=== PATIENT | female | born 1975 | race Caucasian/White ===

== ENCOUNTER 2019-07-20 19:15 | Emergency (ER) | payer OTHER ==
[2019-07-20 19:34] VITALS: BP 117/59; PULSE 87
[2019-07-20] MEDS ORDERED: Ondansetron 4 MG/2 ML SDV IVPUSH ONE (19:37)
[2019-07-20] MEDS ORDERED: Sodium Chloride 0.9% 1,000 ML IV STA (19:42)
[2019-07-20] MEDS ORDERED: Sodium Chloride 0.9% 10 ML Syringe FLUSH PRN (19:42)
[2019-07-20] MEDS ORDERED: HYDROmorphone 1 MG/ML Syringe IVPUSH ONE (19:44)
--- NOTE | 2019-07-20 19:49 | EDM.PDOC ---
ED HPI GENERAL MEDICAL PROBLEM - General Chief Complaint: Abdominal Pain Stated Complaint: GASTRIC BIPASS LAST THURSDAY VOMITTING Time Seen by Provider: 07/20/19 19:38 Source of Information: Reports: Patient History Limitations: Reports: No Limitations - History of Present Illness INITIAL COMMENTS - FREE TEXT/NARRATIVE: The patient presents with upper abdominal pain, nausea and vomiting. This started about 1pm today. She ate a protein shake and refried beans and about an hour after that she had the vomiting and pain. She cannot keep anything down including water. She had gastric bypass surgery by Dr Gallo last Thursday and she was doing good. She has no fever, chills, cough, chest pain, shortness of breath, dysuria, hematuria or diarrhea. Onset: Sudden Duration: Hour(s): Location: Reports: Abdomen Quality: Reports: Sharp Severity: Severe Improves with: Reports: None Worsens with: Reports: None Associated Symptoms: Reports: Nausea/Vomiting. Denies: Chest Pain, Cough, Fever /Chills, Headaches, Shortness of Breath - Related Data Allergies Allergy/AdvReac Type Severity Reaction Status Date / Time chlorhexidine Allergy Other Verified 07/20/19 19:34 chloraprep Allergy Rash Uncoded 08/28/15 08:01 Home Meds: Home Meds Escitalopram [Lexapro] 10 mg PO DAILY 07/20/19 [History] HYDROcodone/Acetaminophen [Acetaminophen/HYDROcodone 2.5-108/5] 5 ml PO [History] Ondansetron [Zofran] 4 mg PO Q6H 07/20/19 [History] buPROPion [Wellbutrin] 75 mg PO BEDTIME 07/20/19 [History] busPIRone [Buspar] 10 mg PO BID 07/20/19 [History] Past Medical History Other HEENT History: glasses, contacts Other Respiratory History: shortness of breath with exertion Other Gastrointestinal History: frequent emesis Other Genitourinary History: Kidney infections, unspecified 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 Other Oncologic History: parathyroid, removed and radiation treatment - Past Surgical History GI Surgical History: Reports: Bariatric Procedure Other Female Surgeries/Procedures: x3 Other Endocrine Surgeries/Procedures: parathyroidectomy Social & Family History - Tobacco Use Smoking Status *Q: Never Smoker - Recreational Drug Use Recreational Drug Use: No ED ROS GENERAL - Review of Systems Review Of Systems: See Below Constitutional: Reports: No Symptoms HEENT: Reports: No Symptoms Respiratory: Reports: No Symptoms Cardiovascular: Reports: No Symptoms Endocrine: Reports: No Symptoms GI/Abdominal: Reports: Abdominal Pain, Nausea, Vomiting. Denies: Diarrhea : Reports: No Symptoms Musculoskeletal: Reports: No Symptoms Skin: Reports: No Symptoms ED EXAM, GI/ABD - Physical Exam Exam: See Below Exam Limited By: No Limitations General Appearance: Alert, No Apparent Distress Ears: Normal External Exam Nose: Normal Inspection Head: Atraumatic, Normocephalic Neck: Normal Inspection Respiratory/Chest: No Respiratory Distress, Lungs Clear, Normal Breath Sounds Cardiovascular: Regular Rate, Rhythm, No Edema, No Murmur GI/Abdominal Exam: Soft, No Organomegaly, No Mass, Tender (Moderate tenderness to the upper abdomen) (Female) Exam: Normal External Exam, Normal Speculum Exam, Other (Cervix is closed) Back Exam: Normal Inspection Extremities: Normal Inspection Neurological: Alert, Oriented, No Motor/Sensory Deficits Course - Vital Signs Last Recorded V/S: Last Vital Signs Temp 98.7 F 07/20/19 19:32 Pulse 87 07/20/19 19:32 Resp 16 07/20/19 19:32 BP 117/59 L 07/20/19 19:32 Pulse Ox 96 07/20/19 19:32 - Orders/Labs/Meds Orders: Active Orders 24 hr Category Date Time Status Peripheral IV Care [RC] . DIRECTED Care 07/20/19 19:42 Active Abdomen Pelvis w Cont [CT] Stat Exams 07/20/19 19:42 Taken LACTIC ACID [CHEM] Stat Lab 07/20/19 22:21 Ordered Sodium Chloride 0.9% [Normal Saline] 1,000 ml Med 07/20/19 21:15 Active IV ASDIRECTED Sodium Chloride 0.9% [Saline Flush] Med 07/20/19 20:30 Active 10 ml FLUSH ASDIRECTED Sodium Chloride 0.9% [Saline Flush] Med 07/20/19 19:42 Active 10 ml FLUSH ASDIRECTED PRN ED Antiemetic Medication Reflex [OM.PC] Stat Oth 07/20/19 19:42 Ordered Peripheral IV Insertion Adult [OM.PC] Stat Oth 07/20/19 19:42 Ordered Medication Orders Sodium Chloride (Normal Saline) 1,000 mls @ 150 mls/hr IV ASDIRECTED ERIC Last Admin: 07/20/19 21:16 Dose: 150 mls/hr Sodium Chloride (Saline Flush) 10 ml FLUSH ASDIRECTED PRN PRN Reason: Keep Vein Open Last Admin: 07/20/19 20:03 Dose: 10 ml Sodium Chloride (Saline Flush) 10 ml FLUSH ASDIRECTED ERIC Labs: Laboratory Tests 07/20/19 07/20/19 07/20/19 Range/Units 19:49 19:49 19:49 WBC 9.71 (3.98-10.04) K/mm3 RBC 4.69 (3.98-5.22) M/mm3 Hgb 14.3 D (11.2-15.7) gm/dl Hct 42.0 (34.1-44.9) % MCV 89.6 (79.4-94.8) fl MCH 30.5 (25.6-32.2) pg MCHC 34.0 (32.2-35.5) g/dl RDW Std Deviation 41.6 (36.4-46.3) fL Plt Count 423 H D (182-369) K/mm3 MPV 10.6 (9.4-12.3) fl Neut % (Auto) 66.4 (34.0-71.1) % Lymph % (Auto) 22.5 (19.3-51.7) % Ashley % (Auto) 8.1 (4.7-12.5) % Eos % (Auto) 2.6 (0.7-5.8) Baso % (Auto) 0.2 (0.1-1.2) % Neut # (Auto) 6.45 H (1.56-6.13) K/mm3 Lymph # (Auto) 2.18 (1.18-3.74) K/mm3 Ashley # (Auto) 0.79 H (0.24-0.36) K/mm3 Eos # (Auto) 0.25 (0.04-0.36) K/mm3 Baso # (Auto) 0.02 (0.01-0.08) K/mm3 Sodium 139 (136-145) mEq/L Potassium 3.7 (3.5-5.1) mEq/L Chloride 103 (98-107) mEq/L Carbon Dioxide 22 (21-32) mEq/L Anion Gap 17.7 H (5-15) BUN 13 (7-18) mg/dL Creatinine 0.7 (0.55-1.02) mg/dL Est Cr Clr Drug Dosing 87.49 mL/min Estimated GFR (MDRD) > 60 (>60) mL/min BUN/Creatinine Ratio 18.6 H (14-18) Glucose 94 (74-106) mg/dL Calcium 9.6 (8.5-10.1) mg/dL Total Bilirubin 2.0 H (0.2-1.0) mg/dL AST 66 H (15-37) U/L ALT 110 H (14-59) U/L Alkaline Phosphatase 212 H (46-116) U/L Total Protein 7.6 (6.4-8.2) g/dl Albumin 3.7 (3.4-5.0) g/dl Globulin 3.9 gm/dL Albumin/Globulin Ratio 1.0 (1-2) Amylase 58 (25-115) U/L Lipase 533 H (73-393) U/L HCG, Qual Negative (NEGATIVE) Urine Color (Yellow) Urine Appearance (Clear) Urine pH (5.0-8.0) Ur Specific [place] (1.005-1.030) Urine Protein (Negative) Urine Glucose (UA) (Negative) Urine Ketones (Negative) Urine Occult Blood (Negative) Urine Nitrite (Negative) Urine Bilirubin (Negative) Urine Urobilinogen (0.2-1.0) Ur Leukocyte Esterase (Negative) Urine RBC (0-5) /hpf Urine WBC (0-5) /hpf Ur Squamous Epith Cells (0-5) /hpf Urine Bacteria (FEW) /hpf Urine Mucus (FEW) /hpf 07/20/19 Range/Units 21:04 WBC (3.98-10.04) K/mm3 RBC (3.98-5.22) M/mm3 Hgb (11.2-15.7) gm/dl Hct (34.1-44.9) % MCV (79.4-94.8) fl MCH (25.6-32.2) pg MCHC (32.2-35.5) g/dl RDW Std Deviation (36.4-46.3) fL Plt Count (182-369) K/mm3 MPV (9.4-12.3) fl Neut % (Auto) (34.0-71.1) % Lymph % (Auto) (19.3-51.7) % Ashley % (Auto) (4.7-12.5) % Eos % (Auto) (0.7-5.8) Baso % (Auto) (0.1-1.2) % Neut # (Auto) (1.56-6.13) K/mm3 Lymph # (Auto) (1.18-3.74) K/mm3 Ashley # (Auto) (0.24-0.36) K/mm3 Eos # (Auto) (0.04-0.36) K/mm3 Baso # (Auto) (0.01-0.08) K/mm3 Sodium (136-145) mEq/L Potassium (3.5-5.1) mEq/L Chloride (98-107) mEq/L Carbon Dioxide (21-32) mEq/L Anion Gap (5-15) BUN (7-18) mg/dL Creatinine (0.55-1.02) mg/dL Est Cr Clr Drug Dosing mL/min Estimated GFR (MDRD) (>60) mL/min BUN/Creatinine Ratio (14-18) Glucose (74-106) mg/dL Calcium (8.5-10.1) mg/dL Total Bilirubin (0.2-1.0) mg/dL AST (15-37) U/L ALT (14-59) U/L Alkaline Phosphatase (46-116) U/L Total Protein (6.4-8.2) g/dl Albumin (3.4-5.0) g/dl Globulin gm/dL Albumin/Globulin Ratio (1-2) Amylase (25-115) U/L Lipase (73-393) U/L HCG, Qual (NEGATIVE) Urine Color Melanie H (Yellow) Urine Appearance Clear (Clear) Urine pH 5.5 (5.0-8.0) Ur Specific [place] > or = 1.030 (1.005-1.030) Urine Protein 1+ H (Negative) Urine Glucose (UA) Negative (Negative) Urine Ketones 4+ H (Negative) Urine Occult Blood Negative (Negative) Urine Nitrite Negative (Negative) Urine Bilirubin 2+ H (Negative) Urine Urobilinogen 1.0 (0.2-1.0) Ur Leukocyte Esterase Negative (Negative) Urine RBC 0-5 (0-5) /hpf Urine WBC 0-5 (0-5) /hpf Ur Squamous Epith Cells 5-10 H (0-5) /hpf Urine Bacteria Moderate H (FEW) /hpf Urine Mucus Moderate H (FEW) /hpf Meds: Medications Generic Name Dose Route Start Last Admin Trade Name Freq PRN Reason Stop Dose Admin Sodium Chloride 1,000 mls @ 150 mls/hr 07/20/19 21:15 07/20/19 21:16 Normal Saline IV 150 mls/hr ASDIRECTED ERIC Administration Sodium Chloride 10 ml 07/20/19 19:42 07/20/19 20:03 Saline Flush FLUSH 10 ml ASDIRECTED PRN Administration Keep Vein Open Sodium Chloride 10 ml 07/20/19 20:30 Saline Flush FLUSH ASDIRECTED ERIC Discontinued Medications Generic Name Dose Route Start Last Admin Trade Name Freq PRN Reason Stop Dose Admin Diatrizoate Meglum/Diatrizoate Sod 60 ml 07/20/19 20:20 Gastrografin 37% PO 07/20/19 20:21 ONETIME ONE Hydromorphone HCl 1 mg 07/20/19 19:44 07/20/19 20:01 Dilaudid IVPUSH 07/20/19 19:45 1 mg ONETIME ONE Administration Hydromorphone HCl 0.5 mg 07/20/19 22:29 Dilaudid IVPUSH 07/20/19 22:30 ONETIME ONE Sodium Chloride 1,000 mls @ 1,000 mls/hr 07/20/19 19:42 07/20/19 20:00 Normal Saline IV 07/20/19 20:41 1,000 mls/hr .BOLUS STA Administration Iopamidol 100 ml 07/20/19 20:20 Isovue-300 (61%) IVPUSH 07/20/19 20:21 ONETIME ONE Metoclopramide HCl 10 mg 07/20/19 22:29 Reglan IVPUSH 07/20/19 22:30 ONETIME ONE Ondansetron HCl 4 mg 07/20/19 19:37 07/20/19 20:00 Zofran IVPUSH 07/20/19 19:38 4 mg ONETIME ONE Administration - Re-Assessments/Exams Free Text/Narrative Re-Assessment/Exam: 07/20/19 19:48 I ordered and IV NS 1L bolus, zofran 4mg IV, dilaudid 1mg IV, labs, UA and a CT of her abdomen and pelvis. 07/20/19 22:12 Her WBC was normal. Her platelets were elevated at 423. Her anion gap is elevated at 17.7. Her total bili is elevated at 2. Her AST is elevated at 66. Her ALT is elevated at 110. Her Alk Phos is elevated at 212. Her lipase is elevated at 533. Her HCG is negative. Her UA shows no UTI. Her CT shows findings suggest recent Destinee-en-Y gastric bypass. Bowel obstruction with mild to moderate dilation of the Destinee limb to the level of the jejunojejunostomy, suggesting stricture at the anastamosis. No obstruction of the bypassed stomach, duodenum, or proximal jejunum to suggest closed-loop obstruction. No perforation. Trivial left pleural effusion. I called [facility] in [place] and I am waiting to talk to the hospitalist. 07/20/19 22:35 I talked with the hospitalist Dr Wright and he accepted the patient. He wanted a lactic acid so I have ordered that. Departure - Departure Time of Disposition: 22:40 Disposition: DC/Tfer to Acute Hospital 02 Condition: Poor Clinical Impression: Small bowel obstruction, Complications of gastric bypass surgery Pancreatitis Qualifiers: Chronicity: acute Pancreatitis type: other Acute pancreatitis complication: no infection or necrosis Qualified Code(s): K85.80 - Other acute pancreatitis without necrosis or infection - Discharge Information Referrals: Iqra Martinez PA-C [Primary Care Provider] - Forms: ED Department Discharge - My Orders Last 24 Hours: My Active Orders 07/20/19 19:42 Peripheral IV Care [RC] . DIRECTED Abdomen Pelvis w Cont [CT] Stat Sodium Chloride 0.9% [Saline Flush] 10 ml FLUSH ASDIRECTED PRN ED Antiemetic Medication Reflex [OM.PC] Stat Peripheral IV Insertion Adult [OM.PC] Stat 07/20/19 20:30 Sodium Chloride 0.9% [Saline Flush] 10 ml FLUSH ASDIRECTED 07/20/19 21:15 Sodium Chloride 0.9% [Normal Saline] 1,000 ml IV ASDIRECTED 07/20/19 22:21 LACTIC ACID [CHEM] Stat - Assessment/Plan Last 24 Hours: My Active Orders 07/20/19 19:42 Peripheral IV Care [RC] . DIRECTED Abdomen Pelvis w Cont [CT] Stat Sodium Chloride 0.9% [Saline Flush] 10 ml FLUSH ASDIRECTED PRN ED Antiemetic Medication Reflex [OM.PC] Stat Peripheral IV Insertion Adult [OM.PC] Stat 07/20/19 20:30 Sodium Chloride 0.9% [Saline Flush] 10 ml FLUSH ASDIRECTED 07/20/19 21:15 Sodium Chloride 0.9% [Normal Saline] 1,000 ml IV ASDIRECTED 07/20/19 22:21 LACTIC ACID [CHEM] Stat
[2019-07-20] MEDS ORDERED: Iopamidol 612 MG/ML 100 ML Bottle IVPUSH ONE (20:20)
[2019-07-20] MEDS ORDERED: Diatrizoate Meglumine/Diatrizoate Sodium 37% 120 ML Bottle PO ONE (20:20)
[2019-07-20] MEDS ORDERED: Sodium Chloride 0.9% 10 ML Syringe FLUSH SCH (20:30)
[2019-07-20] MEDS ORDERED: Sodium Chloride 0.9% 1,000 ML IV SCH (21:15)
[2019-07-20] MEDS ORDERED: Metoclopramide 10 MG/2 ML SDV IVPUSH ONE (22:29)
[2019-07-20] MEDS ORDERED: HYDROmorphone 0.5 MG/0.5 ML Syringe IVPUSH ONE (22:29)
--- NOTE | 2019-07-21 08:19 | CT ---
CT abdomen and pelvis Technique: Multiple axial sections were obtained from above the dome of the diaphragm inferiorly through the pubic symphysis. Intravenous and small amount of oral contrast is noted. Delayed images were also obtained. Comparison: No prior abdominal imaging is available. Findings: Stomach bypass surgery is noted. Bypassed stomach shows small amount of air and fluid. Proximal jejunum is dilated (Destiene limb). This occurs down to an area of anastomotic sutures at the jejunojejunostomy. These findings are most likely due to anastomotic stricture. More distal small bowel is normal in size. There is slight surrounding inflammatory change next to the dilated Destinee limb as well as minimal fluid. Very minimal left-sided pleural effusion is noted. Visualized lung bases otherwise show nothing acute. Liver contains no focal abnormality. Spleen appears within normal limits. Adrenal glands show no nodule. Kidneys show symmetric contrast enhancement. No hydronephrosis or mass is seen. Delayed images show contrast within the distal ureters and bladder. Gallbladder contains no calcified gallstones. Pancreas is within normal limits. Aorta shows no aneurysm. No retroperitoneal adenopathy or mesenteric abnormalities are seen. There is a mild amount of free fluid within the pelvis being seen. No discrete pelvic mass is noted. Appendix is seen which is normal. There is minimal increased density within the anterior abdominal wall fat suggesting recent change from laparoscopic surgery. Bone window settings were reviewed which appear within normal limits for the patient's age. Impression: 1. Bypass surgery which appears to have been recently performed. 2. Dilated Destinee limb which stops at jejunojejunostomy anastomotic sutures. Findings felt compatible with anastomotic stricture. Given the presumed recent surgery, this could relate to postoperative edema. 3. Mild fluid and inflammatory change around the Destinee limb which most likely relates to recent surgery. 4. Trace pleural effusion and mild fluid within the pelvis which most likely is reactive from recent surgery. Diagnostic code #3 I agree with preliminary report from [facility], finalized on 07/20/19, 10:57 PM Central Time
== END 2019-07-20 22:50 ==
LOC: JD.ED 19:15
DX: T85.9XXA Unspecified complication of internal prosthetic device, implant and graft, initial encounter (principal); K85.80 Other acute pancreatitis without necrosis or infection; K56.609 Unspecified intestinal obstruction, unspecified as to partial versus complete obstruction; Z98.84 Bariatric surgery status; Z88.8 Allergy status to other drugs, medicaments and biological substances; Z79.899 Other long term (current) drug therapy
CPT/HCPCS: 36415; 74177; 80053; 81001; 82150; 83605; 83690; 84703; 85025; 96361; 96374; 96375; 96376; 99285; J1170; J2405; J2765; J7040; Q9963

== ENCOUNTER 2019-08-08 16:55 | Emergency (ER) | payer OTHER ==
[2019-08-08 17:09] VITALS: BP 133/85; PULSE 89
[2019-08-08] MEDS ORDERED: Sodium Chloride 0.9% 10 ML Syringe FLUSH PRN (17:09)
[2019-08-08] MEDS ORDERED: Piperacillin/Tazobactam 4.5 GM in Sodium Chloride 0.9% 100 ML IV ONE (17:10)
--- NOTE | 2019-08-08 17:46 | EDM.PDOC ---
ED HPI GENERAL MEDICAL PROBLEM - General Chief Complaint: Abdominal Pain Stated Complaint: WEAK AND ABSCESS IN ABD SENT FROM [place] Time Seen by Provider: 08/08/19 17:05 Source of Information: Reports: Patient, Provider History Limitations: Reports: No Limitations - History of Present Illness INITIAL COMMENTS - FREE TEXT/NARRATIVE: The patient presents from [facility] for an abdominal abscess. She had gastric bypass surgery July 11 and about a week later she had a bowel obstruction. She needed surgery twice. She had a PICC line for awhile. She has the PICC line out and she was back at work today. She did not feel well. She had generalized weakness and no appetite. Her heart rate was fast. She was talking with her remote sensing analyst when she told her this and she was told to go to the clinic and get some fluids. They gave her fluids and did labs and a CT. The CT did shows an abscess. She was seen by Agusto Hightower at the clinic. He called [facility] in [place] and Dr Alvarez the hospitalist accepted her and he also talked with the general surgeon. They wanted her to have zosyn first or during transport. She really does not have much pain. She may have a little pain in the lower abdomen at times. She has no nausea or vomiting. She has no fever or chills. Onset: Gradual Duration: Day(s): Location: Reports: Abdomen Quality: Reports: Ache Severity: Mild Improves with: Reports: None Worsens with: Reports: None Associated Symptoms: Reports: Loss of Appetite. Denies: Chest Pain, Cough, Fever/Chills, Nausea/Vomiting - Related Data Allergies Allergy/AdvReac Type Severity Reaction Status Date / Time chlorhexidine Allergy Other Verified 07/20/19 19:34 chloraprep Allergy Rash Uncoded 08/28/15 08:01 Home Meds: Home Meds Ondansetron [Zofran] 4 mg PO Q6H 07/20/19 [History] Multivitamin [Multivitamins] 1 cap PO DAILY 08/08/19 [History] Past Medical History Other HEENT History: glasses, contacts Other Respiratory History: shortness of breath with exertion Other Gastrointestinal History: frequent emesis Other Genitourinary History: Kidney infections, unspecified 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 Other Oncologic History: parathyroid, removed and radiation treatment - Past Surgical History GI Surgical History: Reports: Bariatric Procedure Other Female Surgeries/Procedures: x3 Other Endocrine Surgeries/Procedures: parathyroidectomy Social & Family History - Tobacco Use Smoking Status *Q: Never Smoker - Caffeine Use Caffeine Use: Reports: None - Recreational Drug Use Recreational Drug Use: No ED ROS GENERAL - Review of Systems Review Of Systems: See Below Constitutional: Reports: No Symptoms HEENT: Reports: No Symptoms Respiratory: Reports: No Symptoms Cardiovascular: Reports: No Symptoms Endocrine: Reports: No Symptoms GI/Abdominal: Reports: Abdominal Pain, Anorexia. Denies: Diarrhea, Nausea, Vomiting : Reports: No Symptoms Musculoskeletal: Reports: No Symptoms ED EXAM, GI/ABD - Physical Exam Exam: See Below Exam Limited By: No Limitations General Appearance: Alert, No Apparent Distress Ears: Normal External Exam Nose: Nasal Deformity Head: Atraumatic, Normocephalic Neck: Normal Inspection Respiratory/Chest: No Respiratory Distress, Lungs Clear, Normal Breath Sounds Cardiovascular: Regular Rate, Rhythm, No Edema, No Murmur GI/Abdominal Exam: Soft, Non-Tender, No Organomegaly, No Mass, Other (3 small laprosocpic scars with no redness, drainage, or pain.) Course - Vital Signs Last Recorded V/S: Last Vital Signs Temp 96.8 F 08/08/19 17:05 Pulse 89 08/08/19 17:05 Resp 20 08/08/19 17:05 BP 133/85 08/08/19 17:05 Pulse Ox 97 08/08/19 17:05 - Orders/Labs/Meds Orders: Active Orders 24 hr Category Date Time Status Peripheral IV Care [RC] . DIRECTED Care 08/08/19 17:09 Active Sodium Chloride 0.9% [Saline Flush] Med 08/08/19 17:09 Active 10 ml FLUSH ASDIRECTED PRN Peripheral IV Insertion Adult [OM.PC] Routine Oth 08/08/19 17:09 Ordered Medication Orders Sodium Chloride (Saline Flush) 10 ml FLUSH ASDIRECTED PRN PRN Reason: Keep Vein Open Last Admin: 08/08/19 17:29 Dose: 10 ml Meds: Medications Generic Name Dose Route Start Last Admin Trade Name Freq PRN Reason Stop Dose Admin Sodium Chloride 10 ml 08/08/19 17:09 08/08/19 17:29 Saline Flush FLUSH 10 ml ASDIRECTED PRN Administration Keep Vein Open Discontinued Medications Generic Name Dose Route Start Last Admin Trade Name Celestina PRN Reason Stop Dose Admin Piperacillin Sod/Tazobactam 100 mls @ 200 mls/hr 08/08/19 17:10 08/08/19 17: 29 Sod 4.5 gm/ Sodium Chloride IV 08/08/19 17:39 200 mls/hr ONETIME ONE Administration - Re-Assessments/Exams Free Text/Narrative Re-Assessment/Exam: 08/08/19 17:47 The patient had an IV so I ordered zosyn and I called [facility] in [place] to verify the transfer and it is all arranged. She will be going to room 487. I will send her by ambulance. Departure - Departure Time of Disposition: 17:50 Disposition: Home, Self-Care 01 Condition: Good Clinical Impression: Abdominal visceral abscess - Discharge Information *PRESCRIPTION DRUG MONITORING PROGRAM REVIEWED*: No *COPY OF PRESCRIPTION DRUG MONITORING REPORT IN PATIENT HERMAN: No Referrals: Iqra Martinez, SARA [Primary Care Provider] - - My Orders Last 24 Hours: My Active Orders 08/08/19 17:09 Peripheral IV Care [RC] . DIRECTED Sodium Chloride 0.9% [Saline Flush] 10 ml FLUSH ASDIRECTED PRN Peripheral IV Insertion Adult [OM.PC] Routine - Assessment/Plan Last 24 Hours: My Active Orders 08/08/19 17:09 Peripheral IV Care [RC] . DIRECTED Sodium Chloride 0.9% [Saline Flush] 10 ml FLUSH ASDIRECTED PRN Peripheral IV Insertion Adult [OM.PC] Routine
== END 2019-08-08 17:58 | disposition home or self-care (01) ==
LOC: JD.ED 16:55
DX: K65.1 Peritoneal abscess (principal); Z88.3 Allergy status to other anti-infective agents; Z98.890 Other specified postprocedural states
CPT/HCPCS: 96365; 99284; J2543; J7030; 99283

== ENCOUNTER 2019-08-14 12:58 | Emergency (ER) | payer OTHER ==
[2019-08-14 13:09] VITALS: BP 123/82; PULSE 107
--- NOTE | 2019-08-14 14:11 | EDM.PDOC ---
ED HPI GENERAL MEDICAL PROBLEM - General Chief Complaint: Abdominal Pain Stated Complaint: ABDOMINAL PAIN Time Seen by Provider: 08/14/19 14:04 Source of Information: Reports: Patient, Family (spouse) History Limitations: Reports: No Limitations - History of Present Illness INITIAL COMMENTS - FREE TEXT/NARRATIVE: 43-year-old female presents the ED with her for her Invanz infusion which she is receiving daily for 14 days. Today is day 2 of treatment. Patient underwent gastric bypass in the early part o July. She believes July 11 and stayed in hospital for 2 and half days and was released. She developed complication of small bowel obstruction July 20 and stayed in hospital until August 01. She went back into [facility] here in [place] because she felt unwell with increased pelvic pain and feeling like she was going to faint on August 08. She was started on IV antibiotics in our ED and sent to [facility] per ground ambulance. Eventual radiology then placed to drain through her right buttock apparently down into the pelvis to drain the abscess. She has a Tavo-Thorpe drain still in place and her drains is twice daily and phillips down the amount of drainage.. Drainage is serosanguineous. She is here today for intravenous antibiotics Invanz which is getting once daily for 14 days and this started yesterday. She is complaining of increased pelvic pain which is intermittent sharp and stabbing appreciates terminal dysuria. She did have a Ayon catheter in place for 2 days after the initial gastric bypass. She doesn't think it was placed at the time of bowel obstruction. He states her stools are normal and formed up without diarrhea. Denies any fever or chills. She has pain medicine at home but doesn't feel it the pain is bad enough to take it and the pain is quite intermittent. Suspicion is that the end of the Tavo-Thorpe drain may be irritating the bladder for the pelvis. Onset: Gradual Onset Date: 08/11/19 Duration: Day(s): (She has appreciated increased pelvic pain over the last 2-3 days.), Intermittent Location: Reports: Abdomen (Lower abdomen pelvis more so on the right side than the left.) Quality: Reports: Ache, Sharp, Stabbing Severity: Moderate (Pain is quite sharp and stabbing when it comes. 6 out of 10) Improves with: Reports: Rest Worsens with: Reports: Other (Feels better with rest.) Context: Denies: Activity ( Worse with walking and movement.), Exercise, Lifting , Sick Contact, Trauma, Other Associated Symptoms: Reports: Loss of Appetite, Malaise, Other (Patient has lost about 31 pounds since her gastric bypass surgery July 11.). Denies: No Other Symptoms, Confusion, Chest Pain, Cough, cough w sputum, Diaphoresis, Fever /Chills, Headaches, Rash, Seizure, Shortness of Breath, Syncope Treatments ETHICAL HACKER: Reports: Other (see below) (None.) Right Groin Pain Score (Numeric/FACES): 7 - Related Data Allergies Allergy/AdvReac Type Severity Reaction Status Date / Time adhesive tape Allergy Rash Verified 08/14/19 13:09 bee venom protein (honey bee) Allergy Other Verified 08/14/19 14:04 chlorhexidine Allergy Other Verified 08/14/19 13:09 chloraprep Allergy Rash Uncoded 08/28/15 08:01 Home Meds: Home Meds Multivitamin [Multivitamins] 1 cap PO DAILY 08/08/19 [History] Omeprazole 20 mg PO DAILY 08/14/19 [History] Past Medical History Other HEENT History: glasses, contacts Other Respiratory History: shortness of breath with exertion Other Gastrointestinal History: frequent emesis Other Genitourinary History: Kidney infections, unspecified Other [employer] ETCHER History: ovarian cyst Other Oncologic History: parathyroid, removed and radiation treatment - Past Surgical History GI Surgical History: Reports: Bariatric Procedure (Gastric bypass surgery performed at [facility] in [facility] July 11 of this year. Has subsequently lost 30 pounds. Complicated by small bowel obstruction on July 20 which kept her in hospital until the . She still has her gallbladder.) Other Female Surgeries/Procedures: x3 Other Endocrine Surgeries/Procedures: parathyroidectomy Social & Family History - Family History Family Medical History: Noncontributory - Tobacco Use Smoking Status *Q: Never Smoker - Caffeine Use Caffeine Use: Reports: None - Recreational Drug Use Recreational Drug Use: No - Living Situation & Occupation Living situation: Reports: Occupation: Employed ED ROS GENERAL - Review of Systems Review Of Systems: See Below Constitutional: Reports: Malaise, Weakness, Fatigue, Decreased Appetite, Weight Loss (30 pound weight loss since gastric bypass July 11.). Denies: Fever, Chills HEENT: Reports: No Symptoms Respiratory: Reports: No Symptoms Cardiovascular: Reports: No Symptoms Endocrine: Reports: Fatigue GI/Abdominal: Reports: Abdominal Pain (More diffuse pelvic pain suprapubically and right lower quadrant.) : Reports: Other (Terminal dysuria.) Musculoskeletal: Reports: No Symptoms Skin: Reports: Other Neurological: Reports: No Symptoms (Has ecchymoses which are resolving abdominal wall from recent Lovenox injections while she was hospitalized at [place].) Psychiatric: Reports: No Symptoms Hematologic/Lymphatic: Reports: No Symptoms Immunologic: Reports: No Symptoms ED EXAM, GI/ABD - Physical Exam Exam: See Below Exam Limited By: No Limitations General Appearance: Alert, WD/WN, Moderate Distress, Other (She is mildly pallid. Vital signs show temperature 36.1 resting heart rate is 107 respiratory to 17 with O2 sats of 98% on room air BP 123/82.) Eyes: Bilateral: Pale Conjunctiva (Moderate) Throat/Mouth: Normal Inspection, Normal Lips, Normal Oropharynx Respiratory/Chest: No Respiratory Distress, Lungs Clear, Normal Breath Sounds, No Accessory Muscle Use, Chest Non-Tender Cardiovascular: Normal Peripheral Pulses, Regular Rate, Rhythm, No Edema, No Gallop, No Murmur, No Rub GI/Abdominal Exam: Soft, Non-Tender, No Organomegaly, Guarding (Tenderness suprapubically and right lower quadrant with guarding), Tender, Abnormal Bowel Sounds. No: Rigid, Rebound (Female) Exam: Other (No inguinal adenopathy.) Back Exam: Other (Patient has a Tavo-Thorpe drain that enters through the right mid buttock and apparently traverses into the pelvis. This was placed by interventional radiology August 09.) Neurological: Alert, Oriented, CN II-XII Intact, Normal Cognition Psychiatric: Anxious Skin Exam: Warm, Dry, Intact, Ecchymosis (Ecchymotic rash in several areas of her abdominal wall from recent Lovenox injections.), Pallor Course - Vital Signs Last Recorded V/S: Last Vital Signs Temp 36.1 C 08/14/19 13:04 Pulse 107 H 08/14/19 13:04 Resp 17 08/14/19 13:04 BP 123/82 08/14/19 13:04 Pulse Ox 98 08/14/19 13:04 - Orders/Labs/Meds Labs: Laboratory Tests 08/14/19 Range/Units 14:00 Urine Color Yellow (Yellow) Urine Appearance Clear (Clear) Urine pH 6.5 (5.0-8.0) Ur Specific [place] 1.025 (1.005-1.030) Urine Protein 1+ H (Negative) Urine Glucose (UA) Negative (Negative) Urine Ketones 3+ H (Negative) Urine Occult Blood Negative (Negative) Urine Nitrite Negative (Negative) Urine Bilirubin 1+ H (Negative) Urine Urobilinogen 0.2 (0.2-1.0) Ur Leukocyte Esterase Negative (Negative) Urine RBC 0-5 (0-5) /hpf Urine WBC 0-5 (0-5) /hpf Ur Epithelial Cells 5-10 H (0-5) /hpf Urine Bacteria Few (FEW) /hpf Urine Mucus Moderate H (FEW) /hpf Meds: Medications Discontinued Medications Generic Name Dose Route Start Last Admin Trade Name Freq PRN Reason Stop Dose Admin Dextrose/Sodium Chloride 1,000 mls @ 900 mls/hr 08/14/19 14:15 08/14/19 14:18 Dextrose 5%-Normal Saline IV 900 mls/hr ASDIRECTED ERIC Administration Iopamidol 100 ml 08/14/19 14:29 08/14/19 14:42 Isovue-300 (61%) IVPUSH 08/14/19 14:30 100 ml ONETIME ONE Administration Magnesium Citrate 210 ml 08/14/19 15:55 08/14/19 16:04 Citrate Of Magnesia PO 08/14/19 15:56 210 ml ONETIME ONE Administration Sodium Chloride 10 ml 08/14/19 14:29 08/14/19 14:42 Saline Flush FLUSH 08/14/19 14:30 10 ml ONETIME ONE Administration - Radiology Interpretation Free Text/Narrative:: 43-year-old female with a complicated history. She underwent gastric bypass surgery and [facility] on July 11. She was discharged 2 days later. She subsequently had return to the hospital due to occasional small bowel obstruction July 20. She remained in hospital until August 01. She was treated operatively. Apparently no bowel was resected. She started to feel unwell again on August 08 and was found to have a pelvic abscess that was drained by interventional radiology in [place] on August 09. She just got out of hospital yesterday. He is here for infusion of Invanz 1 g which she is to receive daily for the next 14 days. Today she is feeling unwell with pelvic pain which is intermittent sharp and stabbing. It is felt suprapubically and right lower quadrant. Her is been draining her Tavo-Thorpe drain twice daily. It's draining about 60 mils of serosanguineous fluid daily. Appears to be functioning well. Patient does appreciate terminal dysuria. She does have some tenderness suprapubically and right lower quadrant of the abdomen on exam. Pain is intermittent. I suspect the Tavo-Thorpe drain is causing current pain syndrome. Over half CT of the abdomen performed with IV contrast only selected track the Tavo-Thorpe drain and make sure the pelvic abscess is draining adequately. Urinalysis will also be obtained. Patient was offered analgesia at this time she did not feel she needed it. - Re-Assessments/Exams Free Text/Narrative Re-Assessment/Exam: 08/14/19 15:26 Urinalysis shows 1+ proteinuria and 3+ ketones. It reveals 1+ bilirubin in the urine as well. Leukocyte esterase is negative. CT of the abdomen and pelvis has been performed with IV contrast only. The drainage tube is in the pouch of John in the appropriate position. It is posterior to the urinary bladder. Large amount of stool distending the right hemicolon the remainder of the colon appears for the most part empty. There is no bowel obstruction. Awaiting the radiologist's final report. 08/14/19 15:56 patient and appraised of the CT findings. I suspect most her pain is actually from right hemicolon constipation causing intermittent lower abdominal cramping pain. I'm going to place her on magnesium citrate 7 ounces by mouth mixed with 6 ounces of juice of choice by mouth once to provide bowel cleanse. This suggest MiraLAX powder 17 g once daily with her protein shake to prevent constipation from reoccurring. She is currently not taking any pain medication. 08/14/19 16:53: CT report is now back from the radiologist. He reports areas of consolidation are seen within the left lung base with linear atelectasis noted within the right lung base. In the abdomen there is a small fluid collection is seen around the pigtail drain placed through the posterior right buttock. Fluid collection measures 5.1 x 2.8 cm in transverse and AP dimension. Findings presumably represent a residual abscess. Nonspecific inflammatory changes seen within the mesentery. Prior stomach surgery is appreciated. Additional surgical and a stenotic sutures are seen within bowel within the left hemiabdomen. There is some nonspecific bowel wall thickening appearing to be present around with in the proximal small bowel close to the area of [place] on the sutures. Appendix is visualized and is normal. Delayed images show contrast within the ureters and bladder. There is inflammatory changes being seen within the right side of the lower abdomen presumably in site of previous trocar placement. Difficult to exclude subcutaneous cellulitis. No changes required based on CT findings. Patient is receiving daily antibiotics for residual abscess which would cover any pneumonic infiltrate as well. He did not comment on the large amount of stool in the right cecum which I believe is contributing to due to her right lower quadrant abdominal pain syndrome at this time. Departure - Departure Time of Disposition: 15:57 Disposition: Home, Self-Care 01 Condition: Fair Clinical Impression: Constipation by delayed colonic transit, Pelvic abscess in female Abdominal pain Qualifiers: Abdominal location: right lower quadrant Qualified Code(s): R10.31 - Right lower quadrant pain - Discharge Information *PRESCRIPTION DRUG MONITORING PROGRAM REVIEWED*: No *COPY OF PRESCRIPTION DRUG MONITORING REPORT IN PATIENT HERMAN: No Instructions: Constipation, Adult, [id number] Referrals: Iqra Martinez PA-C [Primary Care Provider] - Forms: ED Department Discharge Additional Instructions: Evaluation the emergency room today in regards to recurrent right lower quadrant and suprapubic abdominal pain. Complicated history with development of a pelvic abscess post gastric bypass surgery complicated by small bowel obstruction. CT scan of the abdomen done with IV contrast reveals that the drainage catheter is in the appropriate place in the abscess right behind the urinary bladder in the pouch of John. Findings of constipation involving the entire right hemicolon were identified. I suspect this is likely the cause of your current cramping right lower quadrant abdominal pain versus the drain. Just treatment with magnesium citrate or Citroma 7 ounces mixed with 5-6 ounces of juice of choice by mouth once read this usually takes 1-2 hours to work and will usually make the bowels move 3 or 4 times often ending in some diarrhea. Should provide relief of most of your abdominal pain. Suggest MiraLAX powder 17 g or 1 scoop mixed into protein shake once daily to prevent constipation from occurring until you're on her more regular diet and eating better and taking fluids better. You're dehydrated and a liter of IV fluid was given while in the ED.
[2019-08-14] MEDS ORDERED: Dextrose 5%-0.9% NaCl 1,000 ML IV SCH (14:15)
[2019-08-14] MEDS ORDERED: Iopamidol 612 MG/ML 100 ML Bottle IVPUSH ONE (14:29)
[2019-08-14] MEDS ORDERED: Sodium Chloride 0.9% 10 ML Syringe FLUSH ONE (14:29)
[2019-08-14] MEDS ORDERED: Magnesium Citrate Solution 296 ML Bottle PO ONE (15:55)
--- NOTE | 2019-08-14 16:00 | CT ---
CT abdomen and pelvis Technique: Multiple axial sections were obtained from above the dome of the diaphragm inferiorly through the pubic symphysis. Intravenous contrast was utilized. Study is limited without oral contrast. Delayed images were also obtained through the pelvis. Areas of consolidation are seen within the left lung base. Linear atelectasis is noted within the right lung base. Findings: Small fluid collection is seen around a pigtail drain placed through the posterior right buttock. Fluid collection measures 5.1 x 2.8 cm in transverse and AP dimension. Findings presumably represent a residual abscess. Nonspecific inflammatory change is seen within the mesentery. Prior stomach surgery is seen. Additional surgical anastomotic sutures are seen within bowel within the left abdomen. There is some nonspecific bowel wall thickening appearing to be present within the proximal small bowel close to the area of anastomotic sutures. Appendix is visualized and is normal. Delayed images shows contrast within the ureters and bladder. There is inflammatory change being seen within the right side of the lower abdomen presumably in site of previous trocar placement. Difficult to exclude subcutaneous cellulitis. Bone window settings were reviewed which shows no acute finding. Impression: 1. Prior stomach surgery. Additional bowel surgery is noted within the left abdomen. Several areas of presumed bowel wall thickening seen within the abdomen and area of prior surgery. This may relate to change from previous surgery if this surgery has been recent. 2. Fluid collection around a pigtail drain within the lower posterior pelvis presumably due to residual abscess. 3. Inflammatory change within the subcutaneous fat within previous trocar placement which may represent mild cellulitis. 4. Parenchymal density within both lung bases. Findings may represent atelectasis which is worse on the left side but difficult to exclude left lower lung pneumonia as this appears to be more of a consolidative process. 5. No additional abnormality is appreciated. Note is made that details are somewhat limited without oral contrast. Diagnostic code #3
== END 2019-08-14 16:20 | disposition home or self-care (01) ==
LOC: JD.ED 12:58
DX: K59.01 Slow transit constipation (principal); N73.9 Female pelvic inflammatory disease, unspecified; Z91.048 Other nonmedicinal substance allergy status; Z91.030 Bee allergy status; Z79.899 Other long term (current) drug therapy
CPT/HCPCS: 74177; 81001; 96360; 99284; A9270; J7042; Q9967; 99283

== ENCOUNTER 2019-08-16 22:04 | Emergency (ER) | payer OTHER | END 2019-08-16 22:30 | disposition left against medical advice (07) | LOC: JD.ED 22:04 | DX: Z53.21 Procedure and treatment not carried out due to patient leaving prior to being seen by health care provider (principal) ==

== ENCOUNTER 2019-10-22 05:21 | Emergency (ER) | payer OTHER ==
[2019-10-22 05:39] VITALS: BP 110/74; PULSE 107
--- NOTE | 2019-10-22 05:51 | EDM.PDOC ---
ED HPI GENERAL MEDICAL PROBLEM - General Chief Complaint: Gastrointestinal Problem Stated Complaint: CONSTIPATED Time Seen by Provider: 10/22/19 05:32 Source of Information: Reports: Patient, Family () History Limitations: Reports: No Limitations - History of Present Illness INITIAL COMMENTS - FREE TEXT/NARRATIVE: Mrs. Olea is a very pleasant 44-year-old woman with a past medical history significant for gastric bypass in July 2019, complicated by a pelvic abscess requiring drainage and a small bowel obstruction requiring small bowel resection , who states that she does not suffer from chronic constipation, but who takes MiraLAX every 2 or 3 days ever since her gastric bypass. She now presents to the ED stating that she has not had a bowel movement since 10/17/2019, and she feels a tremendous amount of rectal urgency. She states that she has been straining at stool to the point that she is bleeding. She attempted an enema just prior to coming to the ED, but states that she was unable to advance the tip. Other than MiraLAX, the patient states that her only other medication is omeprazole, which she takes on an as-needed basis for GERD, and has not taken for quite some time. The patient's PCP is ISABELA Dewey. Her Bariatric Surgeon is Dr. Radha Gallo. Abdomen Pain Score (Numeric/FACES): 9 - Related Data Allergies Allergy/AdvReac Type Severity Reaction Status Date / Time adhesive tape Allergy Rash Verified 08/14/19 13:09 bee venom protein (honey bee) Allergy Other Verified 08/14/19 14:04 chlorhexidine Allergy Other Verified 08/14/19 13:09 chloraprep Allergy Rash Uncoded 08/28/15 08:01 Home Meds: Home Meds Multivitamin [Multivitamins] 1 cap PO DAILY 08/08/19 [History] Omeprazole 20 mg PO DAILY 08/14/19 [History] Past Medical History HEENT History: Reports: Impaired Vision Other HEENT History: glasses, contacts Gastrointestinal History: Reports: GERD (untreated) J[place]SE[place] KNITTER History: Reports: Other (See Below) (Ovarian cyst) Psychiatric History: Reports: Anxiety, Other (See Below) (Insomnia) Endocrine/Metabolic History: Reports: Obesity/BMI 30+ Oncologic (Cancer) History: Reports: Other (See Below) (Parathyroid cancer, status post parathyroidectomy, RTx) - Past Surgical History GI Surgical History: Reports: Bariatric Procedure (gastric bypass Jul 2019), Small Bowel (resectio) Female Surgical History: Reports: Section (x 3) Other Female Surgeries/Procedures: x3 Other Endocrine Surgeries/Procedures: parathyroidectomy Oncologic Surgical History: Reports: Other (See Below) (Parathyroidectomy) Social & Family History - Tobacco Use Smoking Status *Q: Former Smoker Years of Tobacco use: 4 Packs/Tins Daily: 0.5 Month/Year Tobacco Last Used: Quit 1997 - Caffeine Use Caffeine Use: Reports: None - Alcohol Use Alcohol Use History: No - Recreational Drug Use Recreational Drug Use: No - Living Situation & Occupation Living situation: Reports: , with Spouse, with Family (3 kids) 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 ED EXAM, GI/ABD - Physical Exam Exam: See Below Exam Limited By: No Limitations General Appearance: Alert, WD/WN, Anxious Eyes: Bilateral: Normal Appearance, EOMI Ears: Normal External Exam, Hearing Grossly Normal Nose: Normal Inspection Throat/Mouth: Normal Inspection, Normal Lips, Normal Voice, No Airway Compromise Head: Atraumatic, Normocephalic Neck: Normal Inspection, Full Range of Motion Respiratory/Chest: No Respiratory Distress, Lungs Clear, Normal Breath Sounds, No Accessory Muscle Use Cardiovascular: Normal Peripheral Pulses, Regular Rate, Rhythm, No Edema, No Gallop, No JVD, No Murmur, No Rub GI/Abdominal Exam: Normal Bowel Sounds, Soft, Non-Tender, No Organomegaly, No Distention, No Abnormal Bruit, No Mass (Female) Exam: Deferred Rectal (Female) Exam: Deferred Back Exam: Normal Inspection, Full Range of Motion, NT Extremities: Normal Inspection, Normal Range of Motion, No Pedal Edema, Normal Capillary Refill Neurological: Alert, Oriented, Normal Cognition, No Motor/Sensory Deficits Psychiatric: Anxious Skin Exam: Warm, Dry, Intact, Normal Color, No Rash Course - Vital Signs Last Recorded V/S: Last Vital Signs Temp 36.2 C 10/22/19 05:38 Pulse 107 H 10/22/19 05:38 Resp 22 H 10/22/19 05:38 BP 110/74 10/22/19 05:38 Pulse Ox 100 01/18/20 05:38 - Orders/Labs/Meds Orders: Active Orders 24 hr Category Date Time Status KUB [Abdomen 1V Flat] [CR] Stat Exams 10/22/19 05:41 Taken - Re-Assessments/Exams Free Text/Narrative Re-Assessment/Exam: 10/22/19 05:48 I have ordered a KUB to estimate the degree of constipation. 10/22/19 06:08 A lot of stool throughout the colon, however, there is a large amount of stool in the rectum. I will attempt a manual disimpaction. 10/22/19 06:26 I was able to manually disimpact the majority of the rectal stool. The patient should be able to defecate the remainder. Going forward, I will recommend that the patient take her MiraLAX in a tall glass of water, instead of tea. Departure - Departure Time of Disposition: 06:27 Disposition: Home, Self-Care 01 Condition: Good Clinical Impression: Constipation - Discharge Information *PRESCRIPTION DRUG MONITORING PROGRAM REVIEWED*: Not Applicable *COPY OF PRESCRIPTION DRUG MONITORING REPORT IN PATIENT EHRMAN: Not Applicable Referrals: Iqra Martinez PA-C [Primary Care Provider] - Radha Gallo MD [Ordering Only Provider] - Forms: ED Department Discharge Additional Instructions: You were seen in the emergency room for constipation since 10/17/2019. Workup in the ER included x-rays of your abdomen, which did not show a lot of stool in your colon, but did show a large amount of stool in your rectum. You underwent manual disimpaction in the ER. In order to avoid constipation in the future, we recommend that you continue to take MiraLAX, but makes it in a tall glass of water, instead of tea. If any other problems, please do not hesitate to return to the ER. Sepsis Event Note - Evaluation Sepsis Screening Result: No Definite Risk - Focused Exam Vital Signs: Vital Signs Temp Pulse Resp BP Pulse Ox 10/22/19 05:38 36.2 C 107 H 22 H 110/74 100 Date Exam was Performed: 10/22/19 Time Exam was Performed: 06:26 - My Orders Last 24 Hours: My Active Orders 10/22/19 05:41 KUB [Abdomen 1V Flat] [CR] Stat - Assessment/Plan Last 24 Hours: My Active Orders 10/22/19 05:41 KUB [Abdomen 1V Flat] [CR] Stat
--- NOTE | 2019-10-22 07:31 | CR ---
Abdomen: Supine view of the abdomen was obtained. Comparison: No previous study. Surgical material is seen within the left upper abdomen. Scattered gas within small bowel and colon is seen which appears within normal limits. Several calcifications are seen within the pelvis which are compatible with phleboliths. Bony structures are unremarkable. Impression: 1. Nothing acute is seen on supine abdominal x-ray. Diagnostic code #1 This report was dictated in [place] Standard Time
== END 2019-10-22 06:35 | disposition home or self-care (01) ==
LOC: JD.ED 05:21
DX: K59.00 Constipation, unspecified (principal); K21.9 Gastro-esophageal reflux disease without esophagitis; Z91.030 Bee allergy status; Z88.8 Allergy status to other drugs, medicaments and biological substances; Z79.899 Other long term (current) drug therapy; Z98.84 Bariatric surgery status; Z87.891 Personal history of nicotine dependence; Z91.09 Other allergy status, other than to drugs and biological substances
CPT/HCPCS: 74018; 74018-26; 99282; 99285-25

== ENCOUNTER 2020-05-23 08:32 | Day surgery (SDC) | payer OTHER ==
[~2020-05-23 08:32] MED LIST: Lidocaine 1%/Sod Bicarbonate in NS 8.4% 1 ML Syringe IDERM PRN; Sodium Chloride 0.9% 10 ML Syringe FLUSH PRN
[2020-05-23] MEDS: Lactated Ringers 1,000 ML IV SCH ×2 (09:00→16:51)
[2020-05-23] MEDS ORDERED: Scopolamine 1.5 MG Transdermal Patch TOP ONE (09:34)
--- NOTE | 2020-05-23 09:56 | PCM.PREANE ---
Preanesthetic Assessment - Anesthesia/Transfusion/Family Hx Anesthesia History: Prior Anesthesia Reaction Type of Anesthesia Reaction: Excessive Nausea/Vomiting, Other (see below) (wakes up wild and thrashing....patient requests coming out of anesthesia very slow.) Family History of Anesthesia Reaction: No Transfusion History: No Prior Transfusion(s) (Patient refuses to receive a blood transfusion if indicated.) Intubation History: Unknown - Review of Systems General: No Symptoms Pulmonary: No Symptoms (Former smoker: quit 1994) Cardiovascular: Palpitations (anxiety related), Lightheadedness Gastrointestinal: No Symptoms (History of Gastric bypass surgery/2018-No NSAIDS), Constipation Neurological: No Symptoms (Back pain/Motion sickness), Dizziness, Headache Other: Reports: Easy Bruising, Thyroid Problems (parathyroidectomy noted), Depression, Anxiety - Physical Assessment NPO Status Date: 05/22/20 NPO Status Time: 23:00 Vital Signs: Last Vital Signs Temp 37.0 C 05/23/20 08:35 Pulse 72 05/23/20 08:35 Resp 16 05/23/20 08:35 BP 103/61 05/23/20 08:35 Pulse Ox 100 05/23/20 08:35 Height: 1.6 m Weight: 61.235 kg ASA Class: 2 Mental Status: Alert & Oriented x3 Airway Class: Mallampati = 2 Dentition: Reports: Normal Dentition, Caries Thyro-Mental Finger Breadths: 3 Mouth Opening Finger Breadths: 3 ROM/Head Extension: Full Lungs: Clear to Auscultation, Normal Respiratory Effort Cardiovascular: Regular Rate, Regular Rhythm, No Murmurs - Lab Values: Laboratory Last Values WBC 4.23 K/mm3 (3.98-10.04) 05/23/20 09:02 RBC 4.34 M/mm3 (3.98-5.22) 05/23/20 09:02 Hgb 13.2 gm/dl (11.2-15.7) 05/23/20 09:02 Hct 40.2 % (34.1-44.9) 05/23/20 09:02 MCV 92.6 fl (79.4-94.8) D 05/23/20 09:02 MCH 30.4 pg (25.6-32.2) 05/23/20 09:02 MCHC 32.8 g/dl (32.2-35.5) 05/23/20 09:02 RDW Std Deviation 41.7 fL (36.4-46.3) 05/23/20 09:02 Plt Count 331 K/mm3 (182-369) D 05/23/20 09:02 MPV 11.5 fl (9.4-12.3) 05/23/20 09:02 Neut % (Auto) 46.5 % (34.0-71.1) 05/23/20 09:02 Lymph % (Auto) 41.1 % (19.3-51.7) 05/23/20 09:02 Creek % (Auto) 9.5 % (4.7-12.5) 05/23/20 09:02 Eos % (Auto) 2.4 (0.7-5.8) 05/23/20 09:02 Baso % (Auto) 0.5 % (0.1-1.2) 05/23/20 09:02 Neut # (Auto) 1.97 K/mm3 (1.56-6.13) 05/23/20 09:02 Lymph # (Auto) 1.74 K/mm3 (1.18-3.74) 05/23/20 09:02 Creek # (Auto) 0.40 K/mm3 (0.24-0.36) H 05/23/20 09:02 Eos # (Auto) 0.10 K/mm3 (0.04-0.36) 05/23/20 09:02 Baso # (Auto) 0.02 K/mm3 (0.01-0.08) 05/23/20 09:02 Sodium 139 mEq/L (136-145) 05/23/20 09:02 Potassium 3.6 mEq/L (3.5-5.1) 05/23/20 09:02 Chloride 104 mEq/L (98-107) 05/23/20 09:02 Carbon Dioxide 29 mEq/L (21-32) 05/23/20 09:02 Anion Gap 9.6 (5-15) 05/23/20 09:02 BUN 18 mg/dL (7-18) 05/23/20 09:02 Creatinine 0.8 mg/dL (0.55-1.02) 05/23/20 09:02 Est Cr Clr Drug Dosing 75.78 mL/min 05/23/20 09:02 Estimated GFR (MDRD) > 60 mL/min (>60) 05/23/20 09:02 BUN/Creatinine Ratio 22.5 (14-18) H 05/23/20 09:02 Glucose 88 mg/dL (74-106) 05/23/20 09:02 Calcium 9.2 mg/dL (8.5-10.1) 05/23/20 09:02 Above labs reviewed and noted and within acceptable ranges to proceed with scheduled procedure. - Allergies Allergies/Adverse Reactions: Allergies Allergy/AdvReac Type Severity Reaction Status Date / Time adhesive tape Allergy Rash Verified 05/22/20 15:11 bee venom protein (honey bee) Allergy Other Verified 05/22/20 15:11 chlorhexidine Allergy Other Verified 05/22/20 15:11 chloraprep Allergy Rash Uncoded 05/22/20 15:11 - Anesthesia Plan Pre-Op Medication Ordered: Other (scopalamine patch placed in preop area at 0942) - Acknowledgements Anesthesia Type Planned: General Anesthesia Pt an Appropriate Candidate for the Planned Anesthesia: Yes Alternatives and Risks of Anesthesia Discussed w Pt/Guardian: Yes Pt/Guardian Understands and Agrees with Anesthesia Plan: Yes PreAnesthesia Questionnaire HEENT History: Reports: Impaired Vision Other HEENT History: glasses, contacts Cardiovascular History: Reports: Other (See Below) Other Cardiovascular History: palpitations, stab plebectomy x19 Other Respiratory History: shortness of breath with exertion Gastrointestinal History: Reports: GERD Other Genitourinary History: Kidney infections, unspecified [employer] History: Reports: Other (See Below) Other OB/BYN History: ovarian cyst, pelvic pain, adnexal mass, laparoscopic ovarian cystectomy Musculoskeletal History: Reports: Back Pain, Chronic, Other (See Below) Other Musculoskeletal History: plantar fasciitis Neurological History: Reports: None Psychiatric History: Reports: Anxiety, Depression, Other (See Below) Endocrine/Metabolic History: Reports: Obesity/BMI 30+ Other Endocrine/Metabolic History: Parathyroid removed Hematologic History: Reports: None Immunologic History: Reports: None Oncologic (Cancer) History: Reports: Other (See Below) Other Oncologic History: parathyroid, removed and radiation treatment Dermatologic History: Reports: Other (See Below) Other Dermatologic History: atypical nevi - Infectious Disease History Infectious Disease History: Reports: None - Past Surgical History Head Surgeries/Procedures: Reports: None Cardiovascular Surgical History: Reports: None Respiratory Surgical History: Reports: None GI Surgical History: Reports: Bariatric Procedure, Colonoscopy, Small Bowel, Other (See Below) Other GI Surgeries/Procedures: intstine recection, diagnostic laparoscopy with lysis of adhesions, gastric bypass, hiatal hernia repair Female Surgical History: Reports: Section, Hysterectomy Other Female Surgeries/Procedures: x3 Other Endocrine Surgeries/Procedures: parathyroidectomy Neurological Surgical History: Reports: None Oncologic Surgical History: Reports: Other (See Below) Dermatological Surgical History: Reports: None - SUBSTANCE USE Smoking Status *Q: Former Smoker Recreational Drug Use History: No - HOME MEDS Home Medications: Home Meds ALPRAZolam [Xanax] 0.5 mg PO Q6H PRN 05/22/20 [History] Acetaminophen/HYDROcodone [[place] 325-5 MG] 1 - 2 tab PO Q6H PRN 05/22/20 [History] Ascorbic Acid/Collagen Hydr [Collagen Plus Vit C] 1 cap PO DAILY 05/22/20 [History] Cyclobenzaprine [Flexeril] 10 mg PO BEDTIME PRN 05/22/20 [History] Dicyclomine [Bentyl] 10 mg PO QID PRN 05/22/20 [History] EPINEPHrine [Epipen] 1 dose IM ONETIME PRN 05/22/20 [History] Eszopiclone 2 mg PO BEDTIME PRN 05/22/20 [History] Etonogestrel/Ethinyl Estradiol [Etonogestrel-Ee Vaginal Ring] 1 device VAG ASDIRECTED 05/22/20 [History] Multivitamin 1 tab PO DAILY 05/22/20 [History] Nystatin [Nyamyc] 1 dose TOP TID PRN 05/22/20 [History] Ondansetron [Zofran] 4 mg PO Q4H PRN 05/22/20 [History] buPROPion [Wellbutrin] 100 mg PO DAILY 05/22/20 [History] - CURRENT (IN HOUSE) MEDS Current Meds: Current Medications Lactated Ringer's (Ringers, Lactated) 1,000 mls @ 125 mls/hr IV ASDIRECTED ERIC Stop: 05/23/20 23:00 Last Admin: 05/23/20 09:00 Dose: 125 mls/hr Documented by: Lidocaine/Sodium Bicarbonate (Buffered Lidocaine 1% In Ns 8.4%) 0.25 ml IDERM ONETIME PRN PRN Reason: Prior to IV Start Stop: 05/23/20 18:00 Last Admin: 05/23/20 08:59 Dose: 0.25 ml Documented by: Sodium Chloride (Saline Flush) 10 ml FLUSH ASDIRECTED PRN PRN Reason: Keep Vein Open Stop: 05/23/20 18:00 Discontinued Medications Scopolamine (Transderm-Scop) 1.5 mg TOP ONETIME ONE Stop: 05/23/20 09:35 Last Admin: 05/23/20 09:42 Dose: 1.5 mg Documented by:
--- NOTE | 2020-05-23 10:04 | PCM.OPNOTE ---
- General Post-Op/Procedure Note Date of Surgery/Procedure: 05/23/20 Operative Procedure(s): Laparoscopic lysis of adhesions (greater that 45 minutes). Excision of peritoneal inclusion cyst. Left oophorectomy Findings: Significant amount of adhesive disease in upper abdomen. Multiple loops of small bowel adherent to anterior abdominal wall. Evaluation of pelvis shows grossly normal appearance of the right ovary. Large bowel noted to be adherent to left pelvic side walll with both thinner adhesions and few dense adhesions. Filmy and dense adhesions noted of the bowel to vaginal cuff. Once bowel mobilized off pelvic side wall peritoneal inclusion cyst noted on left side wall. Once this drained/excised left ovary seen more clearly and noted to be slightly adherent to side wall as well. Pre Op Diagnosis: Pelvic pain. Dyspareunia. Adnexal cyst Post-Op Diagnosis: Same Anesthesia Technique: General ET Tube Primary Surgeon: Natalia Llanos Anesthesia Provider: Carmita Knott Pathology: Left ovary sent to pathology for further evaluation Fluid Replacement, Intraop: 2,000 Output, Urine Amount: 50 EBL in mLs: 10 Complications: None Condition: Good Free Text/Narrative:: The risks, benefits, indications, potential complications, and alternatives were explained to the patient and informed consent obtained. The patient was taken to the Operating Room where general anesthesia was induced without complication. The patient was placed in dorsal lithotomy with Vignesh Stirrups. The patient was then prepped and draped in the usual sterile fashion. A sponge stick was placed in the vagina. A Ayon catheter was placed in the bladder. Attention was then turned to the patients abdomen where a Veress needle was inserted into the abdomen while tenting the abdominal wall. Intraabdominal placement was confirmed with a drop test using a saline filled syringe and low intraabdominal pressure on low flow. A vertical infraumbilical incision was made in the umbilical fold and the 5 mm blunt trocar was inserted with the 5 mm laparoscope inserted through the trocar for direct visualization of abdominal entry through the clear view lens. Once intraabdominal placement was confirmed, the blunt obturator was removed and the laparoscope was inserted and exam of the patient's abdomen revealed the findings detailed above. Attention was turned to placement of the accessory ports. Both ports were placed approximately 10 cm lateral and 2-3 cm below the level of the first incision. A 10 mm skin incision was made in the left lower quadrant and a 10 mm trocar was inserted into the abdomen under direct visualization with care to avoid the abdominal wall vasculature. A second port was placed through a 5 mm skin incision in the right lower quadrant. A 5 mm trocar was inserted into the abdomen under direct visualization with care to avoid the abdominal wall vasculature. Adhesions of the large bowel were taken down with blunt dissection with a laparoscopic Kittner and also sharply with an Endoshears. The same technique was used to take down adhesions between the bowel and vaginal cuff. This was a significant portion of the procedure taking at least 45 minutes. After the bowel was able to be mobilized away from the pelvic side wall the fluid collection on ultrasound was noted. This appeared to be a peritoneal inclusion cyst. The Endoshears were used to make a small hole into the cyst. The LigaSure was then used to open this cyst further. Pelvis copiously suction irrigated after the above procedures. Attention then turned to the ovary. The infudibulopelvic ligament was somewhat edematous and the ovary was slightly adherent to pelvic sidewall. The LigaSure was used to carefully take down these adhesions to allow more mobility of the ovary. This was still somewhat limited and so IP was cauterized and transected right at the level of the ovary. Once the ovary was freed it was set into the pelvis. The right lower quadrant trocar was removed and the skin incision was extended. A 10 mm port was then introduced into the abdomen. An EndoCatch bag was placed through the RLQ port and the ovary placed into the bag under direct visualization. The bag was then elevated to the anterior abdominal wall and closed. A Aysha clamp was used to stretch the fascia of the RLQ port and bag and trocar were removed. Attention was turned back to the pelvis where irrigation was performed and hemostasis was confirmed of bilateral dissection beds. Floseal was then placed over the dissection beds. The Yazan Santamaria inlet closure device was placed into the abdomen and used to re-approximate the fascia of the 10 mm port with 0- Vicryl. The left lower quadrant trocar was then removed under direct visualization. The pneumoperitoneum was allowed to escape. The umbilical trocar was removed and lastly the camera was removed from the abdomen under direct visualization to confirm no herniation into the port site. 0.25% Marcaine was injected into the subcutaneous tissue of all skin incisions for local anesthesia. The skin incisions were re-approximated with 4-0 Monocryl in a running subcuticular fashion. Dermabond was also used to seal the incisions. Hemostasis was excellent. The vaginal instruments and Ayon catheter were all removed and hemostasis was adequate. All sponge, lap, needle, and instrument counts were correct x 2.The patient tolerated the procedure well and there were no complications.
[2020-05-23] MEDS ORDERED: Dexamethasone 4 MG/ML 5 ML MDV ONE (10:09)
[2020-05-23] MEDS ORDERED: HYDROmorphone 1 MG/ML Syringe ONE ×2 (10:09→12:47)
[2020-05-23] MEDS ORDERED: Ondansetron 4 MG/2 ML SDV ONE (10:09)
[2020-05-23] MEDS ORDERED: Lidocaine 1% 4 ML ONE (10:09)
[2020-05-23] MEDS ORDERED: Lactated Ringers 2,000 ML ONE (10:09)
[2020-05-23] MEDS ORDERED: Ketorolac 30 MG/ML SDV ONE (10:09)
[2020-05-23] MEDS ORDERED: Rocuronium 50 MG/5 ML Vial ONE ×2 (10:09→12:00)
[2020-05-23] MEDS ORDERED: fentaNYL 250 MCG/5 ML SDV ONE (10:10)
[2020-05-23] MEDS ORDERED: Propofol 200 MG/20 ML SDV ONE (10:10)
[2020-05-23] MEDS ORDERED: Midazolam 1 MG/ML 2 ML SDV ONE (10:10)
[2020-05-23] MEDS: Bupivacaine 0.5% 30 ML SDV ONE ×2 (10:48→11:28)
[2020-05-23] MEDS ORDERED: Metoclopramide 10 MG/2 ML SDV IV PRN (10:57)
[2020-05-23] MEDS ORDERED: Ondansetron 4 MG/2 ML SDV IVPUSH PRN (10:57)
[2020-05-23] MEDS ORDERED: diphenhydrAMINE 50 MG/ML SDV IVPUSH PRN (10:57)
[2020-05-23] MEDS ORDERED: ePHEDrine 50 MG/ML SDV IVPUSH PRN (10:57)
[2020-05-23] MEDS ORDERED: Midazolam 1 MG/ML 2 ML SDV IVPUSH PRN (10:57)
[2020-05-23] MEDS ORDERED: HYDROmorphone 0.5 MG/0.5 ML Syringe IVPUSH PRN (10:58)
[2020-05-23] MEDS ORDERED: Phenylephrine 1 MG in Sodium Chloride 0.9% 10 ML IV SCH (11:00)
[2020-05-23] MEDS: fentaNYL 100 MCG/2 ML SDV IVPUSH PRN ×2 (13:07→13:23)
--- NOTE | 2020-05-23 13:18 | PCM.POSTAN ---
POST ANESTHESIA ASSESSMENT - MENTAL STATUS Mental Status: Oriented - VITAL SIGNS Vital Signs: 1255 96/35, 100 sat, 67, 12, 97.7 Last Vital Signs Temp 37.0 C 05/23/20 08:35 Pulse 72 05/23/20 08:35 Resp 16 05/23/20 08:35 BP 103/61 05/23/20 08:35 Pulse Ox 100 05/23/20 08:35 - RESPIRATORY Respiratory Status: Respiratory Rate WNL, Airway Patent, O2 Saturation Stable, Supplemental Oxygen - CARDIOVASCULAR CV Status: Pulse Rate WNL, Blood Pressure Stable - GASTROINTESTINAL GI Status: No Symptoms - PAIN Pain Score: 0 - POST OP HYDRATION Hydration Status: Adequate & Stable
[2020-05-23] MEDS ORDERED: Acetaminophen/oxyCODONE 325-5 MG Tab PO PRN (13:49)
--- NOTE | 2020-05-23 14:09 | PCM48HPAN ---
Post Anesthesia Note - EVALUATION WITHIN 48HRS OF ANESTHETIC Vital Signs in Normal Range: Yes Patient Participated in Evaluation: Yes Respiratory Function Stable: Yes Airway Patent: Yes Cardiovascular Function Stable: Yes Hydration Status Stable: Yes Pain Control Satisfactory: Yes Nausea and Vomiting Control Satisfactory: Yes Mental Status Recovered: Yes Vital Signs: Last Vital Signs Temp 36.6 C 05/23/20 13:40 Pulse 57 L 05/23/20 13:40 Resp 10 L 05/23/20 13:40 BP 98/53 L 05/23/20 13:40 Pulse Ox 100 05/23/20 13:46
[2020-05-23 16:44] VITALS: BP 104/69; PULSE 67
== END 2020-05-23 16:35 | disposition home or self-care (01) ==
LOC: JD.SDS 08:32
PROVIDERS: ATTEND Obstetrics & Gynecology
DX: N83.292 Other ovarian cyst, left side (principal); K66.8 Other specified disorders of peritoneum; E66.9 Obesity, unspecified; Z98.890 Other specified postprocedural states; Z87.891 Personal history of nicotine dependence; Z79.899 Other long term (current) drug therapy; Z91.030 Bee allergy status; Z88.8 Allergy status to other drugs, medicaments and biological substances; Z91.048 Other nonmedicinal substance allergy status; Z68.25 Body mass index [BMI] 25.0-25.9, adult
CPT/HCPCS: 36415; 80048; 85025; 86850; 86900; 86901; A9270-GY; J1100; J1170; J1885; J2001; J2250; J2370; J2405; J2704; J2710; J3010; J3490; J7120